=== PATIENT | male | born 1985 ===

== ENCOUNTER 2018-01-09 12:04 | Emergency (ER) | payer OTHER ==
--- NOTE | 2018-01-09 12:38 | ER ---
Nurse's Notes [facility] Name: Be Hamilton Age: 32 yrs Sex: Male : 1985 Arrival Date: 01/09/2018 Time: 12:07 Bed 12 Private MD: Diagnosis: Encounter for screening, unspecified Presentation: 01/09 12:37 Presenting complaint: Patient states: has had a nose bleed once a day for past 3-4 iw days. Transition of care: patient was not received from another setting of care. Onset of symptoms was January 05, 2018. Risk Assessment: Do you want to hurt yourself or someone else? Patient reports no desire to harm self or others. Initial Sepsis Screen: Does the patient meet any 2 criteria? No. Patient's initial sepsis screen is negative. Does the patient have a suspected source of infection? No. Patient's initial sepsis screen is negative. Care prior to arrival: None. 12:37 Acuity: TAM 4 iw 12:37 Method Of Arrival: Ambulatory iw Triage Assessment: 12:35 General: Appears in no apparent distress. Behavior is calm, cooperative. iw Historical: - Allergies: 12:46 NKA; iw - Home Meds: 12:46 None [Active]; iw - PMHx: 12:46 None; iw - PSHx: 12:46 Knee surgery; iw - Immunization history:: Adult Immunizations up to date. - Social history:: Smoking status: . - Ebola Screening: : Patient negative for fever greater than or equal to 101.5 degrees Fahrenheit, and additional compatible Ebola Virus Disease symptoms Patient denies exposure to infectious person Patient denies travel to an Ebola-affected area in the 21 days before illness onset No symptoms or risks identified at this time. Screenin:50 Abuse screen: Denies threats or abuse. Denies injuries from another. Nutritional iw screening: No deficits noted. Tuberculosis screening: No symptoms or risk factors identified. Fall Risk None identified. Assessment: 12:50 General: Appears in no apparent distress. comfortable, Behavior is calm, cooperative. iw Pain: Denies pain. Neuro: Level of Consciousness is awake, alert, obeys commands, Oriented to person, place, time, situation, Moves all extremities. Full function. Cardiovascular: Patient's skin is warm and dry. Respiratory: Respiratory effort is even, unlabored, Respiratory pattern is regular. EENT: Nares are clear. Derm: Skin is intact, is healthy with good turgor. Musculoskeletal: Range of motion: intact in all extremities. Vital Signs: 12:45 BP 158 / 90; Pulse 82; Resp 16; Temp 98.2; Pulse Ox 100% ; Weight 99.79 kg; Height 6 iw ft. (182.88 cm); Pain 0/10; 12:45 Body Mass Index 29.84 (99.79 kg, 182.88 cm) iw ED Course: 12:07 Patient arrived in ED. tw3 12:28 Sara Kellogg, RN is Primary Nurse. iw 12:28 Yessica Licea FNP-C is PHCP. snw 12:28 Femi Barlow MD is Attending Physician. snw 12:37 Triage completed. iw 12:45 Arm band placed on. iw 12:50 Patient has correct armband on for positive identification. iw 12:53 No provider procedures requiring assistance completed. Patient did not have IV access iw during this emergency room visit. Administered Medications: No medications were administered Outcome: 12:38 Discharge ordered by . snw 12:53 Discharged to home ambulatory, with family. iw 12:53 Condition: good 12:53 Discharge instructions given to patient, Instructed on discharge instructions, follow up and referral plans. Demonstrated understanding of instructions, follow-up care. 12:54 Patient left the ED. iw Signatures: Yessica Licea FNP-C THORACIC MEDICINE PHYSICIAN-Csnw Sara Kellogg RN RN iw Mack, [facility] tw3
--- NOTE | 2018-01-09 12:38 | EDPHYS ---
Physician Documentation [facility] Name: Be Hamilton Age: 32 yrs Sex: Male : 1985 Arrival Date: 01/09/2018 Time: 12:07 Bed 12 Private MD: ED Physician Femi Barlow HPI: 01/09 12:44 This 32 yrs old Male presents to ER via Ambulatory with complaints of Nose Bleed. snw 12:44 The patient presents with a nose bleed, that is apparently anterior, from the right snw nare, from the left nare, occurred after blowing nose, weather change and uri last week that is intermittent moderate amount stopped /dried blood noted. causative factors include: antecedent infection previous HX of nosebleeds, weather change and the bleeding resolved prior to arrival. Onset: The symptoms/episode began/occurred 4 day(s) ago. Modifying factors: The symptoms are alleviated by pressure, the symptoms are aggravated by blowing nose, weather. Associated signs and symptoms: The patient has no apparent associated signs or symptoms, Loss of consciousness: the patient experienced no loss of consciousness. Severity of symptoms: At their worst the symptoms were moderate. The patient has experienced similar episodes in the past. The patient has not recently seen a physician. pt states he was ill last week and then it cleared, came home from [place] and weather changed to cold. + intermittent epistaxis x 4 days. Pt became nervous as his Parent needed nasal balloon in the past. Pt not on anticoagulants. Historical: - Allergies: 12:46 NKA; iw - Home Meds: 12:46 None [Active]; iw - PMHx: 12:46 None; iw - PSHx: 12:46 Knee surgery; iw - Immunization history:: Adult Immunizations up to date. - Social history:: Smoking status: . - Ebola Screening: : Patient negative for fever greater than or equal to 101.5 degrees Fahrenheit, and additional compatible Ebola Virus Disease symptoms Patient denies exposure to infectious person Patient denies travel to an Ebola-affected area in the 21 days before illness onset No symptoms or risks identified at this time. ROS: 12:43 Constitutional: Negative for fever, chills, and weight loss, Eyes: Negative for injury, snw pain, redness, and discharge, Neck: Negative for injury, pain, and swelling, Cardiovascular: Negative for chest pain, palpitations, and edema, Respiratory: Negative for shortness of breath, cough, wheezing, and pleuritic chest pain, Abdomen/GI: Negative for abdominal pain, nausea, vomiting, diarrhea, and constipation, Back: Negative for injury and pain, : Negative for injury, bleeding, discharge, and swelling, MS/Extremity: Negative for injury and deformity, Skin: Negative for injury, rash, and discoloration, Neuro: Negative for headache, weakness, numbness, tingling, and seizure. 12:43 ENT: Positive for nose bleed. Exam: 12:42 Constitutional: This is a well developed, well nourished patient who is awake, alert, snw and in no acute distress. Head/Face: Normocephalic, atraumatic. Eyes: Pupils equal round and reactive to light, extra-ocular motions intact. Lids and lashes normal. Conjunctiva and sclera are non-icteric and not injected. Cornea within normal limits. Periorbital areas with no swelling, redness, or edema. Neck: Trachea midline, no thyromegaly or masses palpated, and no cervical lymphadenopathy. Supple, full range of motion without nuchal rigidity, or vertebral point tenderness. No Meningismus. Chest/axilla: Normal chest wall appearance and motion. Nontender with no deformity. No lesions are appreciated. Cardiovascular: Regular rate and rhythm with a normal S1 and S2. No gallops, murmurs, or rubs. Normal PMI, no JVD. No pulse deficits. Respiratory: Lungs have equal breath sounds bilaterally, clear to auscultation and percussion. No rales, rhonchi or wheezes noted. No increased work of breathing, no retractions or nasal flaring. Abdomen/GI: Soft, non-tender, with normal bowel sounds. No distension or tympany. No guarding or rebound. No evidence of tenderness throughout. Back: No spinal tenderness. No costovertebral tenderness. Full range of motion. Skin: Warm, dry with normal turgor. Normal color with no rashes, no lesions, and no evidence of cellulitis. MS/ Extremity: Pulses equal, no cyanosis. Neurovascular intact. Full, normal range of motion. Neuro: Awake and alert, GCS 15, oriented to person, place, time, and situation. Cranial nerves II-XII grossly intact. Motor strength 5/5 in all extremities. Sensory grossly intact. Cerebellar exam normal. Normal gait. 12:42 ENT: TM's: are normal, Nose: clotted blood, in both nares, Mouth: is normal, Posterior pharynx: minimal dried blood to posterior pharynx , Voice: is normal. Vital Signs: 12:45 BP 158 / 90; Pulse 82; Resp 16; Temp 98.2; Pulse Ox 100% ; Weight 99.79 kg; Height 6 iw ft. (182.88 cm); Pain 0/10; 12:45 Body Mass Index 29.84 (99.79 kg, 182.88 cm) iw MDM: 12:28 Patient medically screened. snw 12:47 Data reviewed: vital signs, nurses notes. Data interpreted: Pulse oximetry: on room air snw is 100 %. Interpretation: normal. Counseling: I had a detailed discussion with the patient and/or guardian regarding: the historical points, exam findings, and any diagnostic results supporting the discharge/admit diagnosis, the presence of at least one elevated blood pressure reading (>120/80) during this emergency department visit, the need for outpatient follow up, to return to the emergency department if symptoms worsen or persist or if there are any questions or concerns that arise at home. Special discussion: I have referred the patient to see his PCP for further evaluation of high blood pressure. Based on the history and exam findings, there is no indication for further emergent testing or inpatient evaluation. I discussed with the patient/guardian the need to see the ENT specialist for further evaluation of the symptoms. I discussed with the patient/guardian the need to see the primary care provider for further evaluation of the symptoms. Medical screen evaluation completed. EMTALA emergency medical condition absent. Administered Medications: No medications were administered Disposition: 12:59 Co-signature as Attending Physician, Femi Barlow MD I agree with the assessment and kdr plan of care. Disposition: 01/09/18 12:38 Discharged to Home. Impression: Encounter for screening, unspecified. - Condition is Stable. - Discharge Instructions: Nosebleed, Adult, Hypertension, Cryotherapy. - Work release form, Medication Reconciliation Form, Thank You Letter, Antibiotic Education, Prescription Opioid Use form. - Follow up: Private Physician; When: 1 week; Reason: Recheck today's complaints, Continuance of care, Re-evaluation by your physician. - Notes: Please place vaseline via q-tip to each nare every night x 1 week Signatures: Femi Barlow MD MD kdr Therrien, Shelly, BUSINESS LAW[employer]ER-C BUSINESS LAWYER-Csnw Sara Kellogg RN RN iw Corrections: (The following items were deleted from the chart) 12:54 12:38 01/09/2018 12:38 Discharged to Home. Impression: Encounter for screening, iw unspecified. Condition is Stable. Forms are Medication Reconciliation Form, Thank You Letter, Antibiotic Education, Prescription Opioid Use. Follow up: Private Physician; When: 1 week; Reason: Recheck today's complaints, Continuance of care, Re-evaluation by your physician. snw
== END 2018-01-09 12:54 | disposition home or self-care (01) ==
LOC: ER 12:04
DX: R04.0 Epistaxis (principal)
CPT/HCPCS: 99281